=== PATIENT | female | born 1995 | race Caucasian/White ===

== ENCOUNTER 2018-09-19 16:36 | Inpatient (IN) | payer BC ==
[~2018-09-19] VITALS: Ht 162.6 cm; Wt 67.7 kg
[~2018-09-19 16:36] MED LIST: AMOX500C2 PO; IBUP-1542 PO
[2018-09-19] MEDS ORDERED: PREN1TAB71 PO (16:52)
[2018-09-19 16:53] VITALS: Ht 162.6 cm; Wt 67.7 kg
[2018-09-19 16:54] VITALS: BP 114/70
[2018-09-19] MEDS: LACTATED RINGER'S 1,000 ML IV SCH ×2 (17:25→23:36)
[2018-09-19] MEDS: BETAMET NA PHOS/AC(6 MG/ML) 2 ML INJ SYG IM SCH (19:17)
[2018-09-20] MEDS: LACTATED RINGER'S 1,000 ML IV SCH (06:22)
[2018-09-20] MEDS ORDERED: PRENATAL VITAMIN PO SCH (09:00)
--- NOTE | 2018-09-20 16:33 | HP ---
Date/Time of Note Date/Time of Note DATE: 09/20/18 TIME: 16:26 OB - History Hx of Present Free Text/Dictation 23-year-old female 3 para 1 at 34+ weeks gestation admitted because of oligohydramnios for IV hydration Last Menstrual Period: January 20, 2018 Estimated Due Date: Oct 27, 2018 : 3 Para: 1 Spontaneous : 1 Care: Good Care Ultrasounds: Normal mid trimester US Obstetrical Complications: Other (Separation of amnion and chorion) Past Family/Social History * Past Medical, Surgical, Family and Obstetric Histories reviewed from chart. Blood Type: O+ Rubella: not immune RPR/VDRL: Negative GBS Status: Unknown HBsAG: Negative OB Admission Exam Vital Signs Vital Signs Vital Signs Date Temp Pulse Resp B/P (MAP) Pulse Ox O2 O2 Flow FiO2 Time Delivery Rate 09/19/18 98.0 114/70 Room Air 16:54 (85) Physical Exam HEENT: WNL Heart: Rhythm Normal Lungs: Clear, Equal Abdomen: WNL Extremities: Normal Reflexes: Normal Cervical Dilatation: None Effacement: 0% Station: Ballotable Membranes: Intact Heart Rate: 140's Accelerations: Accelerations Present Decelerations: No Decelerations Varibility: Moderate OB Assessment/Plan Reason for admission: other (Oligohydramnios) Other Assessment: 34+ weeks gestation Oligohydramnios Amnion and chorion separation Other plan: Patient was admitted for IV hydration Recheck amniotic fluid following the CAMELIA SOTO MD Sep 20, 2018 16:33
--- NOTE | 2018-09-20 16:44 | PD.PPDC ---
[facility] Discharge Instruction Provider Information Physician Information 23-year-old female admitted with diagnosis of oligohydramnios which was resolved the following day Diagnosis [id number] Final Diagnosis: Cyiac9m Status post oligohydramnios Condition [id number] Patient Condition: Icoqd0z Good Diet [id number] Diet: Bwoqj5b Resume Regular Diet Activity/Restrictions [id number] Activity: Vpehd3m Bedrest May Shower Follow-up Follow-up with Physician: 2, Day/Days (In antepartum testing unit for antepartum testing) Return to clinic for Comment: Refer back to OB triage for decreased move CAMELIA SOTO MD Sep 20, 2018 16:44
--- NOTE | 2018-09-20 17:28 | DS ---
Date/Time of Note Date/Time of Note Home today with follow-up with antepartum testing unit of [facility] on Saturday or Saturday DATE: 09/20/18 TIME: 17:26 Obstetrical Discharge Record Final Diagnosis Final Diagnosis: not delivered Other Final Diagnosis 34+ weeks gestation decreased amniotic fluid Complications Other (Separation of amnion and chorion, oligohydramnios) Condition on Discharge Physical Assessment Voiding: Yes Bowel Movement: Yes Breast: Soft, non-tender, Filling Fundus: Other (Gravid) Abdomen and Incision: Abdomen appears to be heart tones are reactive Episiotomy: Not applicable Calf Tenderness: No Patient Condition: Good (Repeat DALTON today was more than 10 cm) CAMELIA SOTO MD Sep 20, 2018 17:28
[2018-09-20] MEDS: BETAMET NA PHOS/AC(6 MG/ML) 2 ML INJ SYG IM SCH (18:20)
--- NOTE | 2018-09-23 14:09 | NSTRPT ---
NST Information Datetime Report Generated by CPN: 09/23/2018 14:09 Datetime: 09/19/2018 14:24 NST Information EGA: 34.4 Test Number: 5 Time on Monitor: 09/19/2018 14:41 Time off Monitor: 09/19/2018 15:03 NST Duration (Min): 22 Reason for NST: Other Reason for NST Other: Unfused Amnion _ Chorion Test and Monitor Explained: Monitor Explained; Test Explained; Verbalized Understanding Pulse: 97 Resp: 18 SBP: 112 DBP: 63 Test Evaluation NST Interventions: None Patient States Movement: Present Contraction Frequency: none FHR Baseline : 130 Variability: Moderate 6-25bpm Accelerations: 15X15 Decelerations: Variable FHR Category: Category II NST Results: Reactive Provider Notified: Dr tobar reviewed us report _ strip/Dr Maya Comments: pt to u/s dalton 4.2 cm cephalic dalton on 09/01 was 11.0 cm variable decel x 2, quynh 110 bpm _ [address] Tobar reviewed strip _ wet reading of us-recommends pt be sent to the hospital for IV hydration 1538 Dr Maya given report re Dr Tobar recommendation, DALTON 4.2 cm, variable decel x 2-orders rece ived 1540 Report to Loraine Piedra RN in triage, preliminary us report _ prenatals faxed to triage. Pt verbal izes understanding _ willingness to comply with recommendation Electronically Signed By E-Signature: with User ID: [email or web address] Datetime: 09/01/2018 09:59 NST Information EGA: 32.0 NST Duration (Min): 35 Datetime: 08/28/2018 14:08 NST Information EGA: 31.3 NST Duration (Min): 26 Datetime: 08/26/2018 14:22 NST Information EGA: 31.1 NST Duration (Min): 21 Datetime: 08/15/2018 13:50 NST Information EGA: 29.4 NST Duration (Min): 46 Datetime: 08/12/2018 13:42 NST Information EGA: 29.1 Datetime: 08/12/2018 13:10 NST Duration (Min): 26
[2018-10-22] MEDS ORDERED: IBUP800T48 PO (13:45)
[2018-10-22] MEDS ORDERED: ACET325T33 PO (13:45)
== END 2018-09-20 18:40 | disposition home or self-care (01) | DRG 833 ==
LOC: OBT 16:36 → L-D 16:38 → OBT 18:12 → L-D 18:31 → PP1 09-20 02:13
PROVIDERS: ADMIT Obstetrics & Gynecology; ATTEND Obstetrics & Gynecology
DX: O41.03X0 Oligohydramnios, third trimester, not applicable or unspecified (principal); Z3A.34 34 weeks gestation of pregnancy
CPT/HCPCS: 76818; 84112; 96365; G0463; J0702; J7120